=== PATIENT | female | born 1990 | race African-American/Black ===

== ENCOUNTER 2017-07-08 11:53 | Emergency (ER) | payer OTHER ==
[~2017-07-08] VITALS: Ht 157.5 cm; Wt 59.0 kg
[~2017-07-08 11:53] MED LIST: CELEXA10 MG PO; COMPAZINE10 MG PO; GILDESS1 EAC1 PO; HYDROCODONE-AP1 EAC6 PO; MONONESSA1 EACH PO; ONDANSETRON HCL4 M2 PO; PANTOPRAZOLE SO40 M1 PO; PERCOCET PO; PREDNISONE 10 M10 MG PO; RISPERIDONE 1 MG1 MG PO; TIZANIDINE HCL4 M1 PO; ULTRAM 50MG TAB50 MG PO
[2017-07-08] MEDS ORDERED: PROZAC10 MG PO (12:05)
[2017-07-08] MEDS ORDERED: TESSALON PERLE100 MG PO (13:36)
[2017-07-08] MEDS ORDERED: VENTOLIN HFA 1818 GM INH (13:36)
[2017-07-08] MEDS ORDERED: PROMETHAZINE/C118 ML PO (13:36)
[2017-07-08] MEDS ORDERED: PREDNISONE 20 M20 MG PO (13:36)
[2017-07-08] MEDS ORDERED: ALBUTEROL2.5 MG/31 INH (13:40)
== END 2017-07-08 13:59 | disposition home or self-care (01) ==
LOC: ER 11:53
DX: J20.8 Acute bronchitis due to other specified organisms (principal); B97.89 Other viral agents as the cause of diseases classified elsewhere; K21.9 Gastro-esophageal reflux disease without esophagitis; J45.909 Unspecified asthma, uncomplicated; G43.909 Migraine, unspecified, not intractable, without status migrainosus; Z88.0 Allergy status to penicillin; Z88.8 Allergy status to other drugs, medicaments and biological substances